=== PATIENT | male | born 1995 | race Hispanic/Latino ===

== ENCOUNTER 2023-09-11 09:47 | Emergency (ER) | payer OTHER ==
[~2023-09-11] VITALS: Ht 165.1 cm; Wt 137.9 kg
[2023-09-11] MEDS: KETOROLAC 15MG/ML VIAL (15MG/ML) IM ONE (10:30)
[2023-09-11 10:50] VITALS: BP 148/82; PULSE 82; RESP 18; O2SAT 99
[2023-09-11] MEDS: AMLODIPINE 5 MG TAB PO ONE (11:05)
== END 2023-09-11 11:58 | disposition home or self-care (01) ==
LOC: EDH 09:47
DX: M25.471 Effusion, right ankle (principal); J45.909 Unspecified asthma, uncomplicated
CPT/HCPCS: 99283; 73610; 96372; J1885